=== PATIENT | male | born 1970 | race Caucasian/White ===

== ENCOUNTER 2023-08-24 09:20 | Outpatient (REF) | payer MEDICAID, SELFPAY ==
[2023-08-24 15:33] LABS: Abs Immature Grans 0.01 10^3/uL (0.0-0.06); Absolute Basophil Count 0.04 10^3/uL (0.0-0.2); Absolute Eosinophil Count 0.19 10^3/uL (0.0-0.7); Absolute Lymphocyte Count 1.68 10^3/uL (1.2-3.4); Absolute Neutrophil Count 2.84 10^3/uL (1.2-6.7); Basophils % 0.7; Eosinophils % 3.5; HCT 41.5 % (40.0-50.0); HGB 13.2 g/dL (13.5-17.5); Immature Grans % 0.2; Lymphocytes % 30.8; MCH 27.2 pg (27.0-33.0); MCHC 31.8 % (32.0-36.0); MCV 85 fL (80-95); MPV 11.1 fL (8.0-11.0); Monocytes % 12.8; Platelet Count 165 10^3/uL (130-400); RBC 4.86 10^6/uL (4.36-5.78); RDW 13.3 % (11.8-14.1); RDW-SD 41.7 fL; WBC 5.46 10^3/uL (4.4-10.8)
[2023-08-24 16:10] LABS: ALT 25 U/L (16-63); AST 13 U/L (15-37); Albumin 4.2 g/dL (3.4-5.0); Alkaline Phosphatase 63 U/L (46-116); Anion Gap 9.2 mmol/L (3-11); BUN 11 mg/dL (7-18); Bilirubin, Total 0.4 mg/dL (0.2-1.0); CO2 27.8 mmol/L (21.0-32.0); CREATININE 0.8 mg/dL (0.70-1.30); Calcium 9.3 mg/dL (8.5-10.1); Calculated LDL 127 mg/dL (<100); Chloride 107 mmol/L (98-107); Cholesterol 206 mg/dL (<200); Estimated GFR 107.15 (mL/min/1.73m2); Glucose 105 mg/dL (74-106); HDL Cholesterol 73 mg/dL (40-60); Potassium 4.6 mmol/L (3.5-5.1); Sodium 144 mmol/L (136-145); Total Protein 7.2 g/dL (6.4-8.2); Triglyceride 31 mg/dL (<150)
== END 2023-08-24 09:21 | disposition home or self-care (01) ==
LOC: NCHCN 09:20
PROVIDERS: Visit Provider Physician Assistant
DX: Z12.5 Encounter for screening for malignant neoplasm of prostate (principal)
CPT/HCPCS: 80053; 80061; 84153; 85025

== ENCOUNTER 2023-10-28 07:34 | Day surgery (SDC) | payer MEDICAID, SELFPAY ==
--- NOTE | 2023-10-28 07:07 | W.ANESPRE ---
General Info Date of Service Date Performed: 10/28/23 Height: 5 ft 8 in Weight: 87.997 kg Body Mass Index (BMI): 29.5 Surgical Procedure: Operation Date: 10/28/23 09:10 Proposed Procedure Side Surgeon p Colonoscopy Jermaine Hughes MD s Possible Hemorrhoid Banding Jermaine Hughes MD Meds Allergies and Home Medications Allergies Allergy/AdvReac Type Severity Reaction Status Date / Time No Known Allergies Allergy Verified 10/28/23 07:53 Home Medication Medication Instructions Recorded bisacodyl 5 mg tablet,delayed 5 mg PO ONCE #4 tabs 10/15/23 release (Dulcolax (bisacodyl)) polyethylene glycol 3350 17 17 g PO ONCE #238 grams 10/15/23 gram/dose oral powder cetirizine 10 mg tablet (24Hour 10 mg PO DAILY PRN 10/27/23 Allergy) ibuprofen-diphenhydramine citrate 1 cap PO QHS 10/28/23 200 mg-38 mg tablet (Advil PM) Current Visit Medications: Current Medications Generic Name Dose Route Start Last Admin Trade Name Raúlq PRN Reason Stop Dose Admin Ringer's Solution 1,000 mls @ 80 mls/hr 10/28/23 06:00 IV 10/28/23 23:59 INFUSION EUN IV Miscellaneous Supplies 1 each 10/28/23 06:00 Iv Access IV 10/28/23 23:59 DIRECTED EUN Sodium Chloride 0 ml 10/28/23 06:00 Normal Saline Flush 10 Ml Syr IV 10/28/23 23:59 PRN PRN Sodium Chloride 0 ml 10/28/23 06:00 Normal Saline 10 Ml Vial IJ 10/28/23 23:59 DIRECTED PRN Sterile Water 0 ml 10/28/23 06:00 Water,Injection,Sterile 10 Ml Vial IJ 10/28/23 23:59 DIRECTED PRN PFSH Active Problems Active Problems: Problem Status Onset Code Varicocele I86.1 Bleeding internal hemorrhoids K64.8 Overweight E66.3 Vitamin D deficiency E55.9 Medical History 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 Psoriasis Adjustment disorder with mixed anxiety and depressed mood Tobacco Smoking/Tobacco Use Status: Never Alcohol Alcohol Intake: current Alcohol intake frequency: 3 or more drinks per day Substance Use Substance use type: does not use Vital Signs and Lab Results Vital Signs Most Recent Vital Signs in EMR: Temp Pulse Resp BP Pulse Ox 36.4 C L 79 20 122/91 H 99 10/28/23 07:40 10/28/23 07:40 10/28/23 07:40 10/28/23 07:40 10/28/23 07:40 Lab Results Blood Type / Crossmatch: No Data to Display Complete Blood Count: No Data to Display Complete Metabolic Panel: No Data to Display Liver Function Panel: No Data to Display Coagulation Panel: No Data to Display Cardiac Panel: No Data to Display Arterial Blood Gas: No Data to Display Venous Blood Gas: No Data to Display Pancreas Panel: No Data to Display Thyroid Panel: No Data to Display Infectious Disease: No Data to Display Blood Cultures: No Data to Display Toxicology Panel: No Data to Display Anesthesia Assessment and Plan Anesthesia History Personal History: No History of Anesthesia Complications Family History: No Family History of Anesthesia Complications Exercise Tolerance Exercise Tolerance: Metabolic Equivalents>4 Pertinent Negatives Pertinent Negatives: No Symptoms of GERD, No Major Cardiovascular Symptoms or Complaints and No Major Pulmonary Symptoms or Complaints Cardiac & Pulmonary Exam Cardiac Exam: Normal S1/S2 Heart Sounds Pulmonary Exam: Clear Bilateral Breath Sounds Implantable Cardiac Device Does patient have a Pacemaker or an ICD?: No Airway Exam Known Difficult Airway: No Mallampati Class: 2 Mouth Opening: Normal (> 3cm) Thyromental Distance: Less than 3 cm Neck Range of Motion: Full ROM Neck Circumference: Normal Teeth Condition: Normal Dentition ASA Classification ASA Score: ASA 2 Emergency Case?: No NPO Status NPO Status: NPO Clears >2 hours, Solids >8 hours Anesthesia Plan Resuscitation Status: Full Code Anesthesia Technique: General Anesthesia Airway Planned: Natural Airway Monitors Used: Standard Monitors
[2023-10-28 07:40] VITALS: BP 122/91; PULSE 79; RESP 20; TEMP 36.4; O2SAT 99
[2023-10-28] MEDS: Lactated Ringers 1,000 ML 80 ML IV (07:59)
[2023-10-28 08:06] VITALS: BMI 29.5
--- NOTE | 2023-10-28 08:33 | W.COLOREPORT ---
Date of service: 10/28/23 Time of Service: 08:38 Colonoscopy Report Procedure Description: PROCEDURES PERFORMED: 1. Colonoscopy with cold forceps polypectomy PREOPERATIVE DIAGNOSIS: Screening colonoscopy POSTOPERATIVE DIAGNOSIS: Colorectal polyp, mild sigmoid diverticulosis, grade 2 internal hemorrhoids SURGEON: Silas Hughes MD INDICATION FOR PROCEDURE: the patient is a 53-year-old man who has never had a colonoscopy. He is due for his for screening. He has mild hemorrhoid complaints. No family history of colon cancer. FINDINGS: Terminal ileum was normal. Mild diverticular changes in the sigmoid colon only. No inflammation or stricture. A single isolated 2-3 mm sessile rectosigmoid polyp was noted and removed with cold forceps technique. Grade 2 internal hemorrhoids noted at 2 separate columns. SURVEILLANCE interval/FOLLOW-UP: 7-10 years, but pending path confirmation SPECIMENS: None EBL: Minimal COMPLICATIONS: None QUALITY of prep: Excellent Procedure in detail: The patient gave written consent and was in agreement with the indications, the potential risks as well as the benefits of the procedure. They were taken to the endoscopy suite and laid in the left lateral decubitus position. A timeout was performed and anesthesia was administered which was tolerated well. I started the procedure. Digital rectal and visual examination was performed and grossly within normal limits. A well-lubricated flexible colonoscope was then introduced and passed without any notable difficulty all the way to the cecum identified by the ileocecal valve and the appendiceal orifice. The terminal ileum was briefly intubated and looked normal. The scope was then slowly withdrawn with the above-noted findings. The colonoscope was then removed and an anoscope was introduced for banding. See separate procedure note. The patient tolerated the procedure well and was taken to the PACU in hemodynamically stable condition.
--- NOTE | 2023-10-28 08:40 | W.PM.DSUDISC ---
Date of service: 10/28/23 Time of Service: 08:40 Discharge Plan Disposition Patient Disposition: Home Condition: Good Discharge Details Attending Provider: Jermaine Hughes Primary Care Provider: Rosas Lee Home Meds and New Rx's Prescriptions: No Action bisacodyl [Dulcolax (bisacodyl)] 5 mg tablet,delayed release (DR/EC) 5 mg PO ONCE Qty: 4 0RF Rx Instructions: Take per colonoscopy instructions provided by ordering providers office polyethylene glycol 3350 17 gram/dose powder 17 g PO ONCE Qty: 238 0RF Rx Instructions: Take per colonoscopy instructions provided by ordering providers office cetirizine [24Hour Allergy] 10 mg tablet 10 mg PO DAILY PRN Advil PM 200-38 mg tablet 1 cap PO QHS Patient Comments: takes 1/2 tab Discharge Instructions Additional Instructions: FINDINGS: A small polyp was found and removed today. It is nothing to worry about. That is why we do the colonoscopies. You probably need to repeat a colonoscopy in 7 to 10 years pending the path results on this polyp. Hemorrhoid banding was performed today. There is nothing further to do. The bands will simply fall off at some point in the future and you probably will not notice when. Stand Alone Forms: Anesthesia Discharge Inst., Bailee Hernadez ([facility]) Activity:: Activity as Tolerated Diet:: As Tolerated
--- NOTE | 2023-10-28 09:00 | BOWEL_PTH ---
PATIENT: Chencho Wilson LOC: [facility] U#:[id number] AGE/SX: 53/M ROOM: RE10/28/[address]: Jermaine Hughes : 1970 BED: DIS: 10/28/2023 SPEC #: [id number] RECD: 10/28/23 12:52 STATUS: TIKA RE #: [id number] LATESHA: 10/28/23 09:[address]: Jermaine Hughes DEPT: Surgical Specimen RECD BY: Amber Barth ENTERED: 10/28/23 12:53 SP TYPE: Bowel OTHR DR: Rosas Lee Tissues: 1 - BIOPSY BOWEL Procedures: GROSS AND MICRO LEVEL 4 Comments: [id number]
[2023-10-28 09:05] VITALS: BP 127/86; PULSE 74; RESP 16; TEMP 36.2; O2SAT 96
[2023-10-28 09:28] VITALS: BP 122/91; PULSE 70; RESP 16; TEMP 36.4; O2SAT 98
--- NOTE | 2023-10-28 09:28 | W.PM.OP ---
Date of service: 10/28/23 Time of Service: 09:28 Operative Note Operative Note Refer to Anesthesia Record Procedure Description: PROCEDURES PERFORMED: 1. Anoscopy with hemorrhoid banding PREOPERATIVE DIAGNOSIS: internal hemorrhoids POSTOPERATIVE DIAGNOSIS: Grade 2 internal hemorrhoids SURGEON: Silas Huhges MD INDICATION FOR PROCEDURE: 53-year-old man with symptomatic hemorrhoids. FINDINGS: The left lateral and right anterior columns had grade 2 disease and were banded. EBL: Minimal COMPLICATIONS: None QUALITY of prep: Excellent Procedure in detail: The patient gave written consent and was in agreement with the indications, the potential risks as well as the benefits of the procedure. After colonoscopy (see separate procedure note), well?lubricated anoscope was introduced with the above?noted findings. The patient tolerated the procedure well, he did not have any subjective pain and was taken to the PACU in hemodynamically stable condition.
--- NOTE | 2023-10-28 10:43 | W.ANESPOSTOP ---
Postoperative Evaluation Date, Time and Location Date Performed: 10/28/23 Time Performed: 09:30 Patient Location: Day Surgery Unit Vital Signs Most Recent Imported Vital Signs: Most Recent Vital Signs Temp Pulse Resp BP Pulse Ox 36.4 C L 70 16 122/91 H 98 10/28/23 09:28 10/28/23 09:28 10/28/23 09:28 10/28/23 09:28 10/28/23 09:28 Pain Score Most Recent Pain Score: Most Recent Pain Score Pain Level 0 10/28/23 09:05 Assessment Mental Status: Awake (Alert & Oriented to Patient Baseline) Airway and Respiratory Function: Patent airway with normal (patient baseline) respiratory exam Cardiovascular Function: Hemodynamically Stable Hydration Status: Adequately Hydrated Nausea & Vomiting: No Nausea or Vomiting Pain: Pt. Denies Any Pain Peripheral Nerve Block: Patient did not receive a nerve block
== END 2023-10-28 09:48 | disposition home or self-care (01) ==
PROVIDERS: PCP Physician Assistant; Visit Provider Student in an Organized Health Care Education/Training Program
PROC: 0DJD8ZZ Inspection of Lower Intestinal Tract, Via Natural or Artificial Opening Endoscopic (ICD-10-PCS; CPT 45378; principal; 2023-10-28 09:00)
PROC: (CPT 45380; 2023-10-28 09:00)
DX: Z12.11 Encounter for screening for malignant neoplasm of colon (principal); K64.1 Second degree hemorrhoids; D12.8 Benign neoplasm of rectum; K57.30 Diverticulosis of large intestine without perforation or abscess without bleeding
CPT/HCPCS: 45380; 46221; 00123; 88305; J2704